=== PATIENT | female | born 1995 | race Caucasian/White ===

== ENCOUNTER 2016-08-08 21:49 | Emergency (ER) | payer SELFPAY ==
[~2016-08-08] VITALS: Ht 152.4 cm; Wt 85.2 kg
[~2016-08-08 21:49] MED LIST: ALBU18HF2 IH; BENZ100C97 PO; CETI-115 PO; EUCA1LOZ PO; PRED20TA PO
--- OUTSIDE RECORDS SUMMARY | 2016-08-08 21:53 | XMS REPORT | Continuity of Care Document ---
Author Author [facility] Organization [facility] Address Unknown Phone Unavailable Allergies Active Description Code Type Severity Reaction Onset Reported/Identified Relationship to Patient Clinical Status Yes No Known Allergies No Known Allergies Drug Allergy Unknown N/A 12/23/2015 Medications Problems Procedures Results Test Result Range URINALYSIS, ROUTINE - 12/23/15 22:38 UA LEUKOCYTE ESTERASE DIPSTICK TRACE NEGATIVE UA NITRITE DIPSTICK NEGATIVE NEGATIVE UA PROTEIN DIPSTICK NEGATIVE NEGATIVE UA GLUCOSE DIPSTICK NEGATIVE NEGATIVE UA KETONE DIPSTICK NEGATIVE NEGATIVE UA UROBILINOGEN DIPSTICK NORMAL NORMAL UA BILIRUBIN DIPSTICK NEGATIVE NEGATIVE UA BLOOD DIPSTICK NEGATIVE NEGATIVE UA SPECIFIC GRAVITY >=1.030 1.015-1.025 UR PH 5.5 5.0-7.0 UA MICROSCOPIC - 12/23/15 22:38 UA BACTERIA 2+ NEGATIVE UA EPITHELIAL CELLS 2+ epi/hpf 0 - 1+ UA MUCUS 1+ NEG TO 1+ UA RBC 0-3 rbc/hpf 0 - 3 UA VOLUME FOR EXAM 12.0 mL (12mL STD) UA WBC 5-10 wbc/hpf 0 - 5 CHLAMYDIA DNA BY PCR - 12/23/15 22:38 Microbiology URINE CULTURE - 12/23/15 22:38 Microbiology UR TEST - 12/23/15 22:39 UR TEST POSITIVE NEGATIVE WET MOUNT - 12/23/15 23:19 Microbiology GRAM STAIN - CHLAMYDIA DNA BY PCR - 12/23/15 23:19 Microbiology HCG QUANT INTACT - 12/23/15 23:37 HCG QUANT INTACT 73213 mIU/mL HGB HCT - 02/02/16 20:46 MEAN CELL VOLUME 83.9 fl 80.0-100.0 HEMOGLOBIN 12.0 gm/dL 12.0-16.0 HEMATOCRIT 35.9 % 37.0-47.0 HCG QUANT INTACT - 02/02/16 20:46 HCG QUANT INTACT 10 mIU/mL Encounters ACCT No. Visit Date/Time Discharge Status Pt. Type Provider Facility Loc./Unit Complaint [id number] 05/24/2013 15:30:00 05/24/2013 23 :59:59 CLS Outpatient [id number] 05/21/2013 10:53:00 05/21/2013 23 :59:59 CLS Outpatient [id number] 03/25/2013 18:08:00 03/25/2013 23 :59:59 CLS Outpatient
--- OUTSIDE RECORDS SUMMARY | 2016-08-08 21:53 | XMS REPORT | Continuity of Care Document ---
Author Author [facility] Organization [facility] Address Unknown Phone Unavailable Support Name Relationship Address Phone HAM BIRD MD Caregiver [address] [place] [address] Unavailable LOCO GU MD Caregiver [address] [place] [address] Unavailable SILVIA PEÑA Next Of Kin [address] [place] [address] CP Insurance Providers Guarantor Rivera Peña Address [address] [place] [address] Email [email or web address] Payer Self Pay Subscriber's Name Rivera Peña Relationship 18 Self Advance Directives Directive Response Recorded Date/Time Advanced Directives Type None 03/19/16 7:30pm Chief Complaint and Reason for Visit Chief Complaint Dyspnea/Respdistress Reason for Visit ASTHMA EXACERBATION Upper respiratory infection Problems Active Problems Medical Problem Onset Date Status ASTHMA EXACERBATION Unknown Acute Chronic pruritic rash in adult Unknown Acute Past Problems Medical Problem Onset Date Upper respiratory infection Unknown Medications Current Home Medications Medication Dose Units Route Directions Days Qty Instructions Start Date Albuterol Sulfate (Ventolin Hfa) 18 Gm Hfa.aer.ad 1 Puff Inhalation Daily as needed for Shortness Of Air 12/29/11 Benzonatate (Tessalon Perle) 100 Mg Capsule 2 Tab Oral Every 8 Hours as needed for Cough 20 Capsule 03/19/16 Cetirizine Hcl (Zyrtec) 10 Mg Tablet 10 Mg Oral Daily 03/19/16 Eucalyptus/Menthol (Cough Drops) 1 Each Lozenge 1 Anuja Oral As Needed 03/19/16 Prednisone 20 Mg Tablet 20 Mg Oral As Directed 18 Tablet Take 3 pills for 3 days THEN, Take 2 pills for 3 days THEN, Take 1 pill for 3 days THEN STOP. 03/19/16 Past Home Medications Medication Directions Ordered Status Albuterol Sulfate (Proventil) 2 Mg Tablet, 01/11/09 Discontinued Fexofenadine Hcl (Ana M) 30 Mg Tablet, 30 Mg G Tube Daily 01/28/13 Discontinued Fluticasone Propionate (Flonase) 16 Gm [place].susp, 16 Gm Nasal As Needed 07/06 Discontinued Social History Social History Problem Response Recorded Date/Time Onset Date Status Hx Substance Use No 03/19/2016 7:42pm Not Applicable Not Applicable Hx Alcohol Use No 03/19/2016 7:42pm Not Applicable Not Applicable Has the pt used tobacco in the last 12 months No 12/29/2011 5:40pm Not Applicable Not Applicable Tobacco Usage none 08/26/2014 1:45am Not Applicable Not Applicable Query Response Start Date Stop Date Smoking Status Never smoker Hospital Discharge Instructions No hospital discharge instructions. Plan of Care Discharge Date 03/19/16 9:07pm Disposition 01 DISCHARGED HOME, SELF-CARE Condition at Discharge Stable Instructions/Education Provided Asthma -- Adult Prescriptions See Medication Section Referrals HAM BIRD MD Address: [address] [place] [address] [place] [phone] Additional Instructions/Education Establish with primary medical physician for follow-up Care Plan and Goals Physician Care Plan Problem: Asthma exacerbation Goal: Follow up with primary care provider Instructions: Take medications and follow care plan as discussed/written Functional Status No functional status results. Allergies, Adverse Reactions, Alerts No known allergies. Immunizations Query Response on File Recorded Date/Time Hx Influenza Vaccination Y 201308/26/14 12:45am Hx Tetanus, Diptheria, Pertussis Y 200508/26/14 12:45am Hx Influenza Vaccination Y 201308/26/14 12:45am Hx Tetanus Diptheria Yes 08/26/14 12:45am Hx Tetanus, Diptheria, Pertussis Y 200508/26/14 12:45am Hx Tetanus Toxoid Vaccination Yes 07/06/12 10:35pm DTaP Vaccine History 1 03/19/16 7:42pm Influenza Vaccine Hx 01/09/2016 03/19/16 7:42pm Tetanus Diptheria Vaccine History 1 03/19/16 7:42pm Vital Signs Acute Vital Signs Vital Response Date/Time Temperature (Fahrenheit) 98.8 deg F (96.8 - 99.1) 03/19/2016 9:07pm Temperature (Calculated Celsius) 37.96112 degrees C (36.0 - 37.3) 03/19/2016 9:07pm Pulse Rate (adult) 113 bpm (60 - 100) 03/19/2016 9:07pm Respiratory Rate 18 breaths/min (10 - 20) 03/19/2016 9:07pm O2 Sat by Pulse Oximetry 100 % (90 - 100) 03/19/2016 9:07pm Blood Pressure 144/75 mm Hg 03/19/2016 9:07pm Blood Pressure 144/75 mm Hg 03/19/2016 9:07pm Height (Feet) 5 feet 03/19/2016 7:30pm Height (Inches) 0 inches 03/19/2016 7:30pm Weight (Kilograms) 80.700 kg 03/19/2016 7:30pm Body Mass Index (BMI) 34.0 03/19/2016 7:30pm Results Laboratory Results Test Name Result Units Flags Reference Collection Date/Time Result Date/ Time Comments Influenza Type A Antigen NEGATIVE NEGATIVE 03/19/2016 8:08pm 2015 8:34pm Negative for Flu A protein antigen. Assay sensitivity is 90%. Influenza Type B Antigen NEGATIVE NEGATIVE 03/19/2016 8:08pm 2015 8:34pm Negative for Flu B protein antigen. Assay sensitivity is 90%. Procedures No known history of procedures. Encounters Encounter Location Arrival/Admit Date Discharge/Depart Date Attending Provider Departed Emergency Room [facility] 03/19/16 7:29pm 03/19/16 9: 07pm LOCO GU MD Recent Diagnosis
[2016-08-08 22:10] VITALS: BP 130/76; PULSE 92; RESP 16; TEMP 98.7; O2SAT 99; Ht 152.4 cm; Wt 85.2 kg
--- OUTSIDE RECORDS SUMMARY | 2016-08-08 22:23 | XMS REPORT | Continuity of Care Document ---
Author Author [facility] Organization [facility] Address Unknown Phone Unavailable Allergies Active Description [...] INTACT - 12/23/15 23:37 HCG QUANT INTACT 67244 mIU/mL HGB HCT - 02/02/16 20:46 MEAN CELL VOLUME 83.9 fl 80.0-100.0 HEMOGLOBIN 12.0 gm/dL 12.0-16.0 HEMATOCRIT 35.9 % 37.0-47.0 HCG QUANT INTACT - 02/02/16 20:46 HCG QUANT INTACT 10 mIU/mL Encounters ACCT No. Visit Date/Time Discharge Status Pt. Type Provider Facility Loc./Unit Complaint [id number] 05/24/2013 15:30:00 05/24/2013 23 :59:59 CLS Outpatient [id number] 05/21/2013 10:53:00 05/21/2013 23 :59:59 CLS Outpatient [id number] 03/25/2013 18:08:00 03/25/2013 23 :59:59 CLS Outpatient
[2016-08-08] MEDS ORDERED: UNK ANTIBIOTIC (22:32)
[2016-08-08] MEDS ORDERED: FEXO1TAB11 PO (22:32)
--- NOTE | 2016-08-08 22:38 | ERPDOC ---
Departure Disposition Decision Date: August 08, 2016 Disposition Decision Time: 22:34 Disposition: 01 DISCHARGED HOME, SELF-CARE Impression Impression Impression: Primary Impression: URI, acute Additional Impression: Chest wall pain Condition: Stable Seen By: Mid-level only Referrals: HAM BIRD MD (Family) Patient Instructions: Upper Respiratory Infection (ED) Problems/Meds/Labs Reviewed?: Yes Medications reviewed and manag: Yes Additional Instructions: Your symptoms are consistent with a viral upper respiratory infection which may exacerbate your asthma. You may take an [id number] antihistamine. Start taking your all ready prescribed Advair. You may use your Ventolin inhaler as needed for shortness of air. He may take 800 mg of ibuprofen every 8 hours with food for chest wall pain and neck discomfort. Follow treatment plan. Follow with your PCP in the next 5 days if your symptoms are not improving for reevaluation. Follow up care ordered?: Yes Mental Status: Alert, Oriented HPI - General Medical General Chief Complaint: Neck Pain Stated Complaint: NECK,UPPER CHEST,UNDERARM PAIN Time Seen by Provider: 22:23 Source: patient HPI - General Medical Initial Comments 20 YO F presents to ED with report of cough, sinus drainage, anterior right neck pain and right anterior chest pain. Patient reports developing a cough after she was seen in [place] and . with a spider bite approx. 2 weeks ago. Was on an antibiotic for spider bite. Concerned that antibiotic may have caused her to have a cough. Associated Symptoms: cough, DENIES: diaphoresis, fever/chills, malaise, shortness of breath Allergies: Coded Allergies: No Known Allergies (Verified , 03/19/16) Past History Past Medical History Metabolic: DENIES: diabetes ENMT: allergies Cardiac: DENIES: angina Respiratory: asthma GI: DENIES: ulcers Female: DENIES: renal insufficiency Neurological: DENIES: seizures Musculoskeletal: DENIES: rheumatoid arthritis Psychological: DENIES: depression Surgical History Denies Surgeries Family History Family PMH: FOUND: other (noncontributory) Vaccines Hx Influenza Vaccination: Yes (2013) Hx Tetanus Diptheria: Yes Hx Tetanus, Diptheria, Pertuss: Yes (2005) Social History Substance Use Type: does not use Alcohol Intake: none Review of Systems Constitutional Constitutional: DENIES: chills, dizziness, fever, weakness Eyes General: DENIES: erythema, exudate Lids/Accessories: DENIES: erythema, swelling ENMT Ears: DENIES: pain Sinuses: congestion, rhinorrhea Jaw: DENIES: clicking, limited opening of mouth, pain, popping Cardiovascular Cardiac: chest pain, see HPI, DENIES: murmur Rhythm/Rate: DENIES: palpitations Pulmonary Respiratory: cough, DENIES: dyspnea GI Upper Abdomen: DENIES: nausea, pain, vomiting Lower Abdomen: DENIES: blood in stool, diarrhea, pain General: DENIES: dysuria, pain Musculoskeletal General: DENIES: joint pain, pain, tenderness Integumentary Skin: DENIES: color change, itching, rash Neurological General: DENIES: ataxia, change in strength, numbness, paralysis/paresis, weakness Psychiatric Psychiatric: DENIES: anxiety, depression, nervousness Physical Exam General General Nourishment: well nourished, well developed, no acute distress, adult General Body Habitus: well groomed Vitals and Pain Weight: Kilograms: Height (feet): 5 Height (inches): 0 Triage Pain Scale: Eyes (brief) Eyes Brief: found: EOMI ENMT (brief) ENMT Brief: FOUND: TM clear, TM good light reflex, mucosa moist, NOT FOUND: nasal exudate, nasal swelling, pharnyx erythema Neck (brief) Neck: FOUND: adenopathy (right anterior cervical), trachea midline, NOT FOUND: tenderness, thyromegaly Respiratory Inspection: NOT FOUND: accessory muscle use, increased effort, tachypnea Auscultation: FOUND: wheezes (fine expiratory wheezes throughout in upper lobes ) Cardiovascular (brief) Cardiac: FOUND: regular rate, regular rhythm Musculoskeletal (brief) Musculoskeletal Brief: NOT FOUND: deformity, loss of motion Integumentary (brief) Integumentary Brief: FOUND: dry, pink, warm Neurologic (brief) Neurological Brief: FOUND: CN w/o gross def to obs, motor-no gross deficits, sensory-no gross deficits Psychiatric (brief) Psychiatric Brief: FOUND: alert, normal affect, oriented Differential Diagnoses Considering: Asthma Exacerbation, Influenza, Pharyngitis, Pneumonia, Sinusitis , URI, Viral Syndrome CARLOS MILLS APRN August 08, 2016 22:38
== END 2016-08-08 23:13 | disposition home or self-care (01) ==
LOC: ED 21:49
DX: J06.9 Acute upper respiratory infection, unspecified (principal); R07.89 Other chest pain